=== PATIENT | female | born 1965 | race Two or more races ===

== ENCOUNTER 2018-11-24 13:15 | Inpatient (IN) | payer OTHER ==
[~2018-11-24] VITALS: Ht 157.5 cm; Wt 74.4 kg
[2018-11-24] MEDS ORDERED: COZAAR100 MG PO (14:35)
[2018-11-24] MEDS ORDERED: NORVASC2.5 M1 PO (14:36)
[2018-11-24] MEDS ORDERED: ZOCOR20 MG PO (14:36)
[2018-11-24] MEDS ORDERED: VENTOL PO (14:37)
[2018-11-24] MEDS ORDERED: ARNUITY ELLIP100 MCG IH (14:37)
== END 2018-11-26 09:38 | disposition home or self-care (01) | DRG 581 ==
LOC: O/R 11-25 06:20 → SURH 11-25 13:15
PROVIDERS: Plastic Surgery; ADMIT Surgery
PROC: 0H0U0ZZ Alteration of Left Breast, Open Approach (ICD-10-PCS; 2018-11-25)
PROC: 07B50ZX Excision of Right Axillary Lymphatic, Open Approach, Diagnostic (ICD-10-PCS; principal; 2018-11-25 18:15)
PROC: 0HBT0ZZ Excision of Right Breast, Open Approach (ICD-10-PCS; 2018-11-25 18:15)
DX: C50.411 Malignant neoplasm of upper-outer quadrant of right female breast (principal); N62 Hypertrophy of breast; Z17.0 Estrogen receptor positive status [ER+]; I10 Essential (primary) hypertension

== ENCOUNTER 2018-11-29 10:29 | Emergency (ER) | payer OTHER ==
[~2018-11-29] VITALS: Ht 157.5 cm; Wt 74.4 kg
[~2018-11-29 10:29] MED LIST: ARNUITY ELLIP100 MCG IH; COZAAR100 MG PO; NORVASC2.5 M1 PO; VENTOL PO; ZOCOR20 MG PO
[2018-11-29] MEDS ORDERED: BACTRIM DS TAB1 EACH (10:46)
== END 2018-11-29 16:55 | disposition home or self-care (01) ==
LOC: ER 10:29
DX: I80.9 Phlebitis and thrombophlebitis of unspecified site (principal); M79.621 Pain in right upper arm

== ENCOUNTER 2022-01-06 07:07 | Outpatient (CLI) | payer OTHER ==
[~2022-01-06 07:07] MED LIST changes: +BACTRIM DS TAB1 EACH
== END 2022-01-06 07:45 | disposition home or self-care (01) ==
LOC: RX STUDY 07:07
PROVIDERS: ATTEND Internal Medicine Pulmonary Disease
DX: J45.50 Severe persistent asthma, uncomplicated (principal); J98.6 Disorders of diaphragm; C79.81 Secondary malignant neoplasm of breast